=== PATIENT | female | born 1990 | race African-American/Black ===

== ENCOUNTER 2024-10-08 18:57 | Emergency (ER) | payer BC ==
[~2024-10-08] VITALS: Ht 162.6 cm; Wt 79.4 kg
[2024-10-08 20:44] LABS: BASOPHILS # (AUTO) 0.1 K/UL (0.0-0.2); BASOPHILS % (AUTO) 0.7 % (0.0-2.0); EOSINOPHILS # (AUTO) 0.4 K/uL (0.0-0.7); EOSINOPHILS % (AUTO) 4.7 % (0.0-7.0); HEMATOCRIT 38.9 % (31.2-41.9); HEMOGLOBIN 13.1 g/dL (10.9-14.3); LYMPHOCYTES # (AUTO) 2.7 K/uL (0.8-4.8); LYMPHOCYTES % (AUTO) 36.3 % (20.5-51.5); MEAN CORPUSCULAR HEMOGLOBIN 29.6 uug (24.7-32.8); MEAN CORPUSCULAR HGB CONC 34 g/dL (32.3-35.6); MONOCYTES # (AUTO) 0.4 K/uL (0.1-1.30); MONOCYTES % (AUTO) 5.1 % (0.0-11.0); NEUTROPHILS % (AUTO) 53.2 % (38.5-71.5); PLATELET COUNT (AUTO) 363 K/uL (179-408); RED BLOOD CELL COUNT(AUTO) 4.42 MIL/uL (3.63-4.92); RED CELL DISTRIBUTION WIDTH 13.5 % (12.3-17.7); WHITE BLOOD COUNT (AUTO) 7.5 K/uL (3.8-11.8)
[2024-10-08 20:47] LABS: DIFFERENTIAL COMMENT 1
[2024-10-08 20:50] LABS: CALCIUM 8.8 mg/dL (8.5-10.1); CREATININE 0.8 mg/dL (0.6-1.3)
[2024-10-08 20:56] LABS: ALBUMIN 3.5 g/dL (3.4-5.0); BILIRUBIN,TOTAL 0.3 mg/dL (0.2-1.0); MAGNESIUM 2.1 mg/dL (1.8-2.4); TOTAL PROTEIN, SERUM 8.2 g/dL (6.4-8.2)
[2024-10-08 20:57] LABS: C-REACTIVE PROTEIN 0.47 mg/dL (0.00-0.30)
[2024-10-08 21:05] LABS: THYROID STIMULATING HORMONE 3.002 mIU/mL (0.358-3.740)
[2024-10-08 22:00] VITALS: BP 108/65; TEMP 97.8; O2SAT 99
== END 2024-10-08 22:00 | disposition home or self-care (01) ==
LOC: ER 18:57
DX: R07.9 Chest pain, unspecified (principal); R06.00 Dyspnea, unspecified; I49.3 Ventricular premature depolarization; Z79.899 Other long term (current) drug therapy; Z90.89 Acquired absence of other organs; Z86.79 Personal history of other diseases of the circulatory system
CPT/HCPCS: 36415; 71045; 83735; 84443; 84484; 85025; 85651; 86140; A4606; A4663